=== PATIENT | female | born 1955 | race Caucasian/White ===

== ENCOUNTER 2018-03-07 06:20 | Day surgery (SDC) | payer OTHER, BC ==
[~2018-03-07] VITALS: Ht 165.1 cm; Wt 136.0 kg
[~2018-03-07 06:20] MED LIST: ALLEGRA ALLERG180 MG PO; DIGOX125 MCG PO; DOLOTRANZ 2.5%1 EACH TP; ECHINACEA500 MG PO; FENOFIBRATE48 MG PO; GLUCOSAMINE &1 EAC1 PO; HUMALOG100 UNIT/2 SC; LEVEMIR FL100 UNIT/1 SC; LEVOTHYROXINE150 MCG PO; METOPROLOL TART25 MG PO; MIDODRINE HCL5 MG PO; NEPHRO-VITE,1 TABLET PO; OMEPRAZOLE20 MG PO; RENVELA800 MG PO; ROCALTROL0.25 MCG PO; SENSIPAR30 MG PO; TRAMADOL HCL50 MG PO; VITAMIN C500 M6 PO; VITAMIN E400 UNIT PO; XARELTO15 MG PO
== END 2018-03-07 08:46 | disposition home or self-care (01) ==
LOC: CATH 06:20
PROVIDERS: Surgery
DX: T82.858A Stenosis of other vascular prosthetic devices, implants and grafts, initial encounter (principal); Y83.2 Surgical operation with anastomosis, bypass or graft as the cause of abnormal reaction of the patient, or of later complication, without mention of misadventure at the time of the procedure; I12.0 Hypertensive chronic kidney disease with stage 5 chronic kidney disease or end stage renal disease; E11.22 Type 2 diabetes mellitus with diabetic chronic kidney disease; N18.6 End stage renal disease; K21.9 Gastro-esophageal reflux disease without esophagitis; G47.30 Sleep apnea, unspecified; Z99.2 Dependence on renal dialysis; Z79.4 Long term (current) use of insulin; Z79.01 Long term (current) use of anticoagulants
CPT/HCPCS: 82948; 87641; C1725; C1769; C1894; J1644; J2250; J3010